=== PATIENT | female | born 1995 | race Hispanic/Latino ===

== ENCOUNTER 2021-11-03 08:41 | Outpatient (CLI) | payer OTHER ==
[2021-11-03 18:14] LABS: SARS-CoV-2 PCR by NAA Not Detected (NotDetected)
== END 2021-11-03 08:42 | disposition home or self-care (01) ==
LOC: CSHLAB 08:41
PROVIDERS: ATTEND Family Medicine
DX: Z20.822 Contact with and (suspected) exposure to COVID-19 (principal)
CPT/HCPCS: U0003; U0005

== ENCOUNTER 2021-11-07 05:23 | Inpatient (IN) | payer MEDICAID, OTHER ==
[2021-11-07 07:13] VITALS: BMI 23.1
[2021-11-07] MEDS ORDERED: Famotidine/PF 20 mg/2ml Vial SLOW IVP PRN (07:22)
[2021-11-07] MEDS ORDERED: CEFAZOLIN 2 GM in Premix Bag 1 BAG IVPB SCH (07:22)
[2021-11-07] MEDS ORDERED: Lactated Ringer's 1,000 ML IV SCH (07:22)
[2021-11-07] MEDS ORDERED: hydrALAZINE 20 MG/ML VIAL SLOW IVP PRN ×2 (07:22→11:31)
[2021-11-07] MEDS ORDERED: Promethazine HCl 25 MG/ML VIAL IM PRN ×3 (07:22→11:31)
[2021-11-07] MEDS ORDERED: Ondansetron PF 4 MG/2 ML Vial IVP PRN ×3 (07:22→11:31)
[2021-11-07] MEDS ORDERED: Bicitra 30 ML UDCUP PO PRN (07:22)
[2021-11-07] MEDS ORDERED: Morphine PF 10 MG/10 ML VIAL ONE (07:24)
[2021-11-07] MEDS ORDERED: Fentanyl 100 MCG/2 ML VIAL ONE (07:25)
[2021-11-07] MEDS ORDERED: ePHEDrine Sulfate 50 MG/10 ML VIAL ONE (07:25)
[2021-11-07] MEDS ORDERED: Famotidine/PF 20 mg/2ml Vial ONE (07:34)
[2021-11-07 07:41] LABS: Mean Corpuscular HGB CONC 32.7 g/dL (32.0-36.0); Mean Corpuscular Hemoglobin 25.8 pg (27.0-33.0); Mean Corpuscular Volume 78.9 fl (81.6-98.3); Mean Platelet Volume 11.9 fl (7.4-10.4); Platelet Count 244 10x3/uL (150-450); RBC Distribution Width 13.1 % (11.5-14.5); Red Blood Cell (RBC) Count 4.65 10x6/uL (3.90-5.03); White Blood Cell (WBC) Count 7.8 10x3/uL (3.5-10.5)
[2021-11-07] MEDS ORDERED: Esmolol 100 MG/10 ML VIAL ONE (08:07)
[2021-11-07] MEDS ORDERED: Oxytocin 10 UNITS/ML VIAL ONE (08:23)
[2021-11-07 08:33] LABS: Syphilis Antibody Nonreactive (Nonreactive); Syphilis Antibody Index 0.02 S/CO (<1.00 Non-Reactive)
[2021-11-07 08:34] LABS: Hep B Surf Ag Non-Reactive S/CO (NonReactive)
[2021-11-07] MEDS ORDERED: Ondansetron PF 4 MG/2 ML Vial ONE (08:38)
[2021-11-07] MEDS ORDERED: PHENYLEPHRINE-NS 100 MCG/ML 10 ML SYRINGE ONE (08:49)
[2021-11-07] MEDS ORDERED: Phenylephrine 40 MG/NS 250 ML 250 ML ONE (08:50)
[2021-11-07 08:59] LABS: HBSAg Index 0.16 S/CO (0-0.99)
[2021-11-07 09:03] LABS: RapidComm Collect By RN
[2021-11-07 09:04] LABS: RapidComm Collect By RN; pH (Cord, venous) 7.303 (7.250-7.350)
[2021-11-07] MEDS ORDERED: NS w/ Oxytocin 30 units 500 ML ONE (10:32)
[2021-11-07] MEDS ORDERED: HYDROmorphone 2 MG/ML VIAL SLOW IVP PRN (11:07)
[2021-11-07] MEDS ORDERED: Ondansetron HCl/PF 4 MG/2 ML Vial IVP PRN (11:07)
[2021-11-07] MEDS ORDERED: Hydrocerin (Eucerin) Cream 120 gm Jar TOP PRN (11:07)
[2021-11-07] MEDS ORDERED: diphenhydrAMINE 50 MG/ML VIAL IVP PRN (11:07)
[2021-11-07] MEDS ORDERED: Fentanyl 100 MCG/2 ML VIAL SLOW IVP PRN (11:07)
[2021-11-07] MEDS ORDERED: Promethazine HCl 25 MG SUPP PR PRN (11:07)
[2021-11-07] MEDS ORDERED: Meperidine HCl/PF 25 MG/ML VIAL SLOW IVP PRN (11:07)
[2021-11-07] MEDS ORDERED: Naloxone HCl 0.4 mg/ml Vial IV PRN (11:07)
[2021-11-07] MEDS ORDERED: Ketorolac Tromethamine 30 MG/ML VIAL IVP PRN (11:07)
[2021-11-07] MEDS ORDERED: Naloxone HCl 0.4 mg/ml Vial IVP PRN ×2 (11:07)
[2021-11-07] MEDS ORDERED: Ketorolac Tromethamine 30 MG/ML VIAL IVP SCH (11:15)
[2021-11-07] MEDS ORDERED: Communication Order-Pharmacy FS SCH (11:15)
[2021-11-07] MEDS ORDERED: Ketorolac Tromethamine 30 MG/ML VIAL ONE (11:25)
[2021-11-07] MEDS ORDERED: Boostrix 0.5 ML (Tdap) VIAL IM ONE (11:31)
[2021-11-07] MEDS ORDERED: Lanolin Ointment 7 GM TUBE TOP PRN (11:31)
[2021-11-07] MEDS ORDERED: diphenhydrAMINE 25 MG CAP PO PRN (11:31)
[2021-11-07] MEDS ORDERED: NS w/ Oxytocin 30 units 500 ML IV SCH (11:31)
[2021-11-07] MEDS ORDERED: Simethicone Chewable 80 MG TAB PO PRN (11:31)
[2021-11-07] MEDS ORDERED: Bisacodyl 10 MG SUPP PR PRN (11:31)
[2021-11-07] MEDS: Ketorolac Tromethamine 30 MG/ML VIAL IVP SCH ×3 (13:44→23:28)
[2021-11-07] MEDS: Ferrous Sulfate 325 MG TAB PO SCH (21:51)
[2021-11-07] MEDS: Docusate 100 MG CAP PO SCH (21:51)
[2021-11-07] MEDS ORDERED: Meperidine HCl/PF 25 MG/ML VIAL IM PRN (23:15)
[2021-11-08] MEDS: Ketorolac Tromethamine 30 MG/ML VIAL IVP SCH (05:00)
[2021-11-08 06:00] LABS: Hemoglobin 8.7 g/dL (12.0-15.5); Mean Corpuscular HGB CONC 32.8 g/dL (32.0-36.0); Mean Corpuscular Volume 79.3 fl (81.6-98.3); Mean Platelet Volume 11.6 fl (7.4-10.4); Platelet Count 194 10x3/uL (150-450); RBC Distribution Width 13.1 % (11.5-14.5); Red Blood Cell (RBC) Count 3.34 10x6/uL (3.90-5.03); White Blood Cell (WBC) Count 8.1 10x3/uL (3.5-10.5)
[2021-11-08] MEDS: HYDROcodone/Acetaminophen 5/325 mg Tablet PO PRN ×2 (10:24→17:25)
[2021-11-08] MEDS: Docusate 100 MG CAP PO SCH ×2 (10:24→21:05)
[2021-11-08] MEDS: Ferrous Sulfate 325 MG TAB PO SCH ×2 (10:24→21:05)
[2021-11-08] MEDS: Prenatal Vitamin 1 TAB PO SCH (10:24)
[2021-11-08] MEDS: Ibuprofen 800 MG TAB PO SCH ×2 (14:00→21:05)
[2021-11-09] MEDS: HYDROcodone/Acetaminophen 5/325 mg Tablet PO PRN ×2 (04:30→10:16)
[2021-11-09] MEDS: Ibuprofen 800 MG TAB PO SCH (06:27)
[2021-11-09 07:48] VITALS: BP 101/64; TEMP 98.2
[2021-11-09] MEDS: Ferrous Sulfate 325 MG TAB PO SCH (08:26)
[2021-11-09] MEDS: Docusate 100 MG CAP PO SCH (08:27)
[2021-11-09] MEDS: Prenatal Vitamin 1 TAB PO SCH (08:27)
== END 2021-11-09 12:20 | disposition home or self-care (01) | DRG 788 ==
LOC: CSHLD 05:23 → CSHPED 12:19
PROVIDERS: ADMIT Family Medicine; ATTEND Family Medicine
PROC: 10D00Z1 Extraction of Products of Conception, Low, Open Approach (ICD-10-PCS; principal; 2021-11-07)
DX: O34.211 Maternal care for low transverse scar from previous cesarean delivery (principal); Z37.0 Single live birth; O99.02 Anemia complicating childbirth; D50.9 Iron deficiency anemia, unspecified; Z3A.39 39 weeks gestation of pregnancy
CPT/HCPCS: 36415; 51702; 82805; 85027; 86780; 86850; 86900; 86901; 87340; J1885; J2274; J2405; J2590; J3010; S0028